=== PATIENT | female | born 1965 | race Caucasian/White ===

== ENCOUNTER 2024-12-18 06:03 | Day surgery (SDC) | payer OTHER, SELFPAY ==
[2024-12-18] VITALS (8 sets, daily range): BP systolic 82–121; BP diastolic 47–70; PULSE 71–103; RESP 16–21; TEMP 36.2–36.6; O2SAT 88–96; BMI 36.9
--- NOTE | 2024-12-18 05:50 | PM.PREOP ---
Pre-operative Note Interval Note History & Physical reviewed/Exam performed by Physician: Yes Changes to H&P: No
--- NOTE | 2024-12-18 05:50 | PM.HP.1 ---
History of Present Illness History of Present Illness Chief complaint: Left Podiatry Bone Basic Narrative: 59 year old female here for more painful toes. [place] expresses interest in addressing the painful bent at the middle of her second toe and inner portion of her remaining fifth toe that is rubs the against the adjacent fourth toe, which are causing discomfort and interfering with footwear for normal activities of daily living. Patient would like to proceed with surgical intervention. Patient denies n/v/f/c/sob/cp. [facility] Medical History (Updated 12/10/24 @ 14:25 by Chela Cobb RN) History of back problems Diabetes type 2 HLD (hyperlipidemia) Emphysema of lung Depression Arthritis Surgical History (Updated 12/10/24 @ 14:38 by Chela Cobb RN) Hx of hernia repair Meds Home Medications and Allergies Home Medications Medication Instructions Recorded Confirmed Type albuterol sulfate 90 mcg/actuation inhalation 12/10/24 History aerosol inhaler aspirin 81 mg capsule 81 mg PO DAILY 12/10/24 12/10/24 History baclofen 10 mg tablet mg PO 12/10/24 History bupropion HCl 150 mg 24 hr tablet, 150 mg PO 12/10/24 History extended release clonidine HCl 0.1 mg tablet 0.1 mg PO 12/10/24 History diltiazem HCl 360 mg 360 mg PO DAILY 12/10/24 12/10/24 History capsule,extended release 24 hr doxepin 25 mg capsule 25 mg PO 12/10/24 History duloxetine 60 mg capsule,delayed 60 mg PO 12/10/24 History release estradiol 1 mg tablet mg PO 12/10/24 History fluticasone 500 mcg-salmeterol 50 1 inh inhalation 12/10/24 History mcg/dose blistr powdr for inhalation liraglutide (weight loss) 3 mg/0.5 5 mg SUBCUT WEEKLY 12/10/24 12/17/24 History mL (18 mg/3 mL) subcut pen injector lisinopril 10 mg tablet 10 mg PO DAILY 12/10/24 12/10/24 History metformin 500 mg tablet 1,000 mg PO BID 12/10/24 12/10/24 History rosuvastatin 20 mg tablet 20 mg PO 12/10/24 History tiotropium bromide 18 mcg capsule 1 cap inhalation DAILY 12/10/24 12/10/24 History with inhalation device (Spiriva with HandiHaler) Allergies Allergy/AdvReac Type Severity Reaction Status Date / Time No Known Drug Allergies Allergy Verified 12/10/24 14:38 Exam Extrem Other: Left foot: semi-rigid flexor contracture to toe 2 and adductovarus rotation and contracture to toe 5. Assessment & Plan Assessment & Plan narrative: 1. Flexor contracture left second toe. 2. Rotational contracture left fifth toe. Patient seen and evaluated. Surgical plan: left foot second digit hemiphalangectomy and fifth digit angular reconstruction. Risks and benefits of the procedure discussed with all questions answered to patient's satisfaction. Reviewed potential complications that may include but not limited to the following: DVT, failure to resolve all symptoms, infection, nerve injury, bleeding, recurrence, or wound. Reviewed surgical technique and general aftercare protocols. All questions answered to patient's satisfaction with no guarantees made. Patient verbalized understanding and agreed with surgical plan. RTC for post-op. Time-Based Coding :: [TOTAL MINUTES] spent with patient and on the chart (including review of chart, obtaining history, exam, reviewing outside data, placing orders, documenting exam and treatment plan, and counseling patient) on [DATE].
[2024-12-18] MEDS: ALBUTEROL/IPRATROPIUM 3 ML AMPUL INH (07:36)
[2024-12-18] MEDS: LACTATED RINGERS 1,000 ML 100 ML IV (07:37)
[2024-12-18] MEDS: BUPIVACAINE 0.5% (PF) 30 ML VIAL 10 ML INJ (08:25)
[2024-12-18] MEDS: LIDOCAINE 1% 20 ML INJ (08:26)
[2024-12-18] MEDS: BENZOCAINE/MENTHOL 1 LOZ PKT 1 EACH PO (09:40)
--- NOTE | 2024-12-24 05:41 | P.OP_ITS ---
Operative Date/Time/Diagnoses Date of procedure: 12/18/24 Time of procedure: 07:45 Pre-op diagnosis: 1. Left second toe flexion deformity 2. Left fifth toe rotational deformity Post-op diagnosis: same Procedure & Clinicians Procedure: 1. Left second toe hemiphalangectomy 2. Left fifth toe angular reconstruction Same procedure as scheduled: Yes Indications: Painful left second and fifth toes that inhibit ambulation. Surgeon: Dieudonne Mccallum Click Yes if Unassisted: Yes Anesthesia Type: Sedation and Local Operative Notes Findings: Consistent with diagnosis Closure Type: primary Specimen(s): none sent Estimated Blood Loss (mL): 20 Tourniquet time (min): 38 Procedure in detail: Patient was identified and transferred onto operating table from [facility] in supine position. Deep sedation was administered in operating room. Local block was injected to left second and fifth rays using 8 cc 1:1 1% lidocaine plain and 0.5% marcaine plain. 18 inch ankle tourniquet was applied and inflated to 200 mmHg prior to incision then deflated prior to closure. Surgical limb was prepped and draped in the usual sterile fashion, followed by official timeout with surgical team all in agreement. Attention was directed to left second toe. A linear linear incision was made, and dissection was carried out from skin down to the proximal interphalangeal joint using a # 15 scalpel. Care was taken to protect the neurovascular structures.The apex of deformity was exposed after reflection of the extensor tendon , and a sagittal saw was used to cut the head of the proximal phalanx at the surgical neck. Improved functional anatomy was noted, and surgical site was irrigated copiously using normal saline and closed from deep to superficial using 3-0 vicryl and 4-0 nylon. Attention was directed right fifth toe. An curvilinear incision was made at the distal stump. Dissection was deepened to the level of bone using a hemostat, and a rongeur as used to excise the bony eminence. The flap was modified using an iris scissor until rotational closure was possible to restore anatomical alignment. The surgical site was irrigated copiously using normal saline and closed from deep to superficial using 3-0 vicryl and 4-0 nylon. Perfusion to toe was visualized after release of tourniquet at 38 minutes. 8 cc of 1:1:1 1% lidocaine plain and 0.5% marcaine plain was administered to the respective rays. Incision sites were washed and dried, then they were covered with iodine soaked Adaptic and bulky sterile dressing. Surgical foot was placed in post-op shoe. Patient tolerated procedure without complication and was transferred to PACU with vital signs stable. Complications: none Post-operative Disposition: same day surgery Plan for aftercare: NWB to surgical limb. Keep dressing clean, dry, and intact. Elevate above heart. Take medications as directed and follow-up as scheduled.
== END 2024-12-18 10:06 | disposition home or self-care (01) ==
PROVIDERS: PCP Family Medicine; Referring Provider Podiatrist Foot & Ankle Surgery; Visit Provider Podiatrist Foot & Ankle Surgery
PROC: (CPT 28160; principal; 2024-12-18 07:45)
DX: M20.5X2 Other deformities of toe(s) (acquired), left foot (principal); M24.575 Contracture, left foot; E11.9 Type 2 diabetes mellitus without complications; Z79.84 Long term (current) use of oral hypoglycemic drugs; Z89.422 Acquired absence of other left toe(s)
CPT/HCPCS: 28160; 28124; J0330; J0690; J1100; J1885; J2250; J2704; J3010; J3475